=== PATIENT | female | born 1985 | race Caucasian/White ===

== ENCOUNTER 2018-03-14 19:18 | Emergency (ER) | payer MEDICAID ==
--- NOTE | 2018-03-14 22:08 | ER Document Report ---
ED Medical Screen (RME) - General Chief Complaint: Anxiety Stated Complaint: ANXIETY Time Seen by Provider: 03/14/18 21:19 Mode of Arrival: Ambulatory Information source: Patient Notes: Patient is a 33-year-old female who presents to the emergency department with multiple complaints today. Patient reports that she has a history of anxiety and panic attacks, states she takes Ativan 2 mg 4 times daily. States she has been out for 2 weeks. Patient also complains of right upper and left lower dental pain. Patient reports she has seen a dentist but has not been able to have any work done as her insurance has not come through yet. TRAVEL OUTSIDE OF THE [place] IN LAST 30 DAYS: No - Related Data Allergies/Adverse Reactions: Penicillins Allergy (Verified 03/14/18 19:19) Past Medical History - General Information source: Patient - Social History Chew tobacco use (# tins/day): No Frequency of alcohol use: None Drug Abuse: None Neurological Medical History: Reports: Hx Migraine Renal/ Medical History: Denies: Hx Peritoneal Dialysis Psychiatric Medical History: Reports: Hx Anxiety, Other - Panic disorder Surgical Hx: Negative - Immunizations Immunizations up to date: Yes Review of Systems - Review of Systems EENT: Dental problem Neurological/Psychological: Anxiety -: Yes All other systems reviewed and negative Physical Exam - Vital signs Vitals: Temp Pulse Resp BP Pulse Ox 98.5 F 97 16 124/76 100 03/14/18 19:32 03/14/18 19:32 03/14/18 19:32 03/14/18 19:32 03/14/18 19:32 - Notes Notes: PHYSICAL EXAMINATION: GENERAL: Well-appearing, well-nourished and in no acute distress. HEAD: Atraumatic, normocephalic. EYES: Pupils equal round extraocular movements intact, conjunctiva are normal. ENT: Nares patent, most of patient's teeth are missing, multiple areas of poor dentition noted, no drainable abscess identified. NECK: Normal range of motion LUNGS: No respiratory distress Musculoskeletal: Normal range of motion NEUROLOGICAL: Normal speech, normal gait. PSYCH: Normal mood, normal affect. SKIN: Warm, Dry, normal turgor, no rashes or lesions noted. Course - Re-evaluation Re-evalutation: Patient will be placed on clindamycin for her dental issues. Patient will be given a prescription for Ativan 1 mg x 6 tablets total. I did explain to patient that she needs to establish a primary care provider here in [place] and that we will not to be able to refill her Ativan again. Patient verbalizes understanding of same. - Vital Signs Vital signs: Temp Pulse Resp BP Pulse Ox 97.9 F 88 20 118/72 100 03/14/18 22:28 03/14/18 22:28 03/14/18 22:28 03/14/18 22:28 03/14/18 22:28 Doctor's Discharge - Discharge Clinical Impression: Anxiety Condition: Stable Disposition: HOME, SELF-CARE Instructions: Anxiety ([facility]) Additional Instructions: TOOTHACHE: Your pain is due to dental decay. The tooth must be repaired in order for you to feel better. You will, therefore, be referred to a dentist. We do not have dentists on the staff at [facility]. Severe swelling or drainage around a tooth usually means a dental abscess. This also requires evaluation and treatment by the dentist, but antibiotics may be prescribed while awaiting dental treatment. You should be rechecked immediately if you develop major swelling of the face, increasing pain, a lump in the jaw or gums, headache, difficulty swallowing, or fever. CLINDAMYCIN: You have been given a prescription for the antibiotic clindamycin. It is often prescribed for infections in the mouth, such as dental infections or abscesses, and for skin infections due to MRSA. It's important that you take all the medication, unless instructed otherwise by your physician. Failure to complete the entire course can result in relapse of your condition. Common side effects of antibiotics include nausea, intestinal cramping, or diarrhea. Women may develop vaginal yeast infections, and babies can get yeast (thrush) in the mouth following the use of antibiotics. Contact your physician if you develop significant side effects from this medication. Allergy to this antibiotic can result in hives, wheezing, faintness, or itching. If symptoms of allergy occur, stop the medication and call the doctor. FOLLOW-UP CARE: You have been referred for follow-up care to the dentists listed below. Call the dentists office for an appointment as you were instructed or within the next two days. If you experience worsening or a significant change in your symptoms, notify the physician immediately or return to the Emergency Department at any time for re-evaluation. [facility] [address], [place] I am refilling your anxiety medication for 3 days. We will be unable to refill this medication in the emergency department again. Please call one of the primary care providers that I have listed on your paperwork and set up an appointment to establish care. Take the antibiotics for your dental infection. Follow-up with a dentist as you have already scheduled. Prescriptions: Clindamycin HCl 300 mg PO TID #30 capsule Lorazepam [Ativan 1 mg Tablet] 1 mg PO BID PRN #6 tab PRN Reason: Anxiety
[2018-03-14 22:32] VITALS: BP 118/72
== END 2018-03-14 22:32 | disposition home or self-care (01) ==
LOC: ER 19:18
DX: F41.9 Anxiety disorder, unspecified (principal); K08.89 Other specified disorders of teeth and supporting structures; Z79.899 Other long term (current) drug therapy
CPT/HCPCS: 99283

== ENCOUNTER 2018-06-08 19:34 | Emergency (ER) | payer MEDICAID, OTHER ==
[2018-06-08] MEDS ORDERED: LIDOCAINE 2% VISCOUS SOLN 20 ML UDCUP PO ONE (23:12)
[2018-06-08] MEDS ORDERED: KETOROLAC TROMETHAMINE INJ/PF 30 MG/1 ML SDV IM ONE (23:17)
[2018-06-08] MEDS ORDERED: HYDROCODONE/ACETAMINOPHEN 5-325 MG (6 TAB/ER DISP) PO PRN (23:17)
--- NOTE | 2018-06-08 23:21 | ER Document Report ---
HPI - HPI Time Seen by Provider: 06/08/18 23:12 Pain Level: Denies Notes: Patient is a 33-year-old female who presents to the ED complaining of Rt upper dental pain #23-4 days. Pt states that she has bad teeth and is schedule with the oral surgeon next monday. She is already on cleocin. Pt states that the tooth is fractured and she has been using conservative measures with no relief. She has not noticed any obvious abscess or purulent discharge. Patient states that he is still able to eat and drink, but does have a decreased p.o. intake due to the pain. No other concerns or complaints. Denies any headache, fever, head injury, neck pain, hoarseness, drooling, URI, sore throat, chest pain, palpitations, syncope, cough, shortness of breath, wheeze, dyspnea, abdominal pain, nausea/vomiting/diarrhea, urinary retention, dysuria, hematuria, or rash. - ROS Systems Reviewed and Negative: Yes All other systems reviewed and negative - REPRODUCTIVE Reproductive: DENIES: : Past Medical History - Social History Smoking Status: Never Smoker Family History: Reviewed & Not Pertinent Neurological Medical History: Reports: Hx Migraine Renal/ Medical History: Denies: Hx Peritoneal Dialysis Psychiatric Medical History: Reports: Hx Anxiety - Immunizations Immunizations up to date: Yes Vertical Provider Document - CONSTITUTIONAL Agree With Documented VS: Yes Notes: PHYSICAL EXAMINATION: GENERAL: Well-appearing, well-nourished and in no acute distress. HEAD: Atraumatic, normocephalic. EYES: Pupils equal round and reactive to light, extraocular movements intact, sclera anicteric, conjunctiva are normal. ENT: EAC clear b/l. TM's intact b/l without erythema, fluid, or perforation. Nares patent and without discharge. oropharynx clear without exudates. No tonsilar hypertrophy or erythema. Moist mucous membranes. No sinus tenderness. Uvula midline. No palatine shift. No tongue protrusion. No respiratory compromise. Mouth: Poor dentition. + severe decay and mild gingivitis. + dental fracture to #2. No obvious abscess or discharge noted. No facial swelling. + tenderness to tooth #2. NECK: Normal range of motion, supple without lymphadenopathy. No rigidity/meningismus. LUNGS: Breath sounds clear to auscultation bilaterally and equal. No wheezes rales or rhonchi. HEART: Regular rate and rhythm without murmurs, rubs, gallops. NEUROLOGICAL: Cranial nerves grossly intact. Normal speech, normal gait. Normal sensory, motor exams PSYCH: Normal mood, normal affect. SKIN: Warm, Dry, normal turgor, no rashes or lesions noted. - INFECTION CONTROL TRAVEL OUTSIDE OF THE [place] IN LAST 30 DAYS: No Course - Re-evaluation Re-evalutation: 06/08/18 23:20 Patient is an afebrile, well-hydrated, 33-year-old female who presents to the ED with dental pain, suspect nerve root etiology versus infection. Vitals are acceptable. PE is otherwise unremarkable. No I&D, labs, or imaging warranted at this time based on H&P. Viscous lidocaine dispensed today as well as toradol given. Pt is already on cleocin. Low suspicion for any meningitis, sepsis, peritonsillar/pharyngeal abscess, respiratory compromise, Jose E's, temporal arteritis, or other emergent systemic condition at this time. Patient is aware this condition can change from initial presentation and she needs to monitor symptoms closely. Conservative measures otherwise for symptoms. Call to schedule an appointment with a dentist for further evaluation and management. Recheck with your PCM this week as well. Return to the ED with any worsening/concerning symptoms otherwise as reviewed in discharge. Patient is in agreement. - Vital Signs Vital signs: Temp Pulse Resp BP Pulse Ox 98.5 F 71 16 120/75 100 06/08/18 20:22 06/08/18 20:22 06/08/18 20:22 06/08/18 20:22 06/08/18 20:22 Discharge - Discharge Clinical Impression: Pain, dental Condition: Stable Disposition: HOME, SELF-CARE Instructions: Toothache ([facility]) Additional Instructions: [place] and floss twice daily Maintain fluid intake Take antibiotics as directed Mouthwash, salt water gargles, peroxide rinse as needed Tylenol/ibuprofen as needed Recheck with PCM this week Keep appointment with your oral surgeon next week Return to the ED with any worsening symptoms and/or development of fever, headache, facial swelling, swelling of lips/tongue/throat, trouble swallowing, drooling, hoarseness, neck pain/stiffness, chest pain, palpitations, syncope, shortness of breath, trouble breathing, abdominal pain, n/v/d, numbness/tingling, or other worsening symptoms that are concerning to you. Referrals: [facility] [Provider Group] - Follow up as needed
[2018-06-09 00:12] VITALS: BP 100/67
== END 2018-06-09 00:33 | disposition home or self-care (01) ==
LOC: ER 19:34
DX: K08.9 Disorder of teeth and supporting structures, unspecified (principal)
CPT/HCPCS: 99282; J3490

== ENCOUNTER 2019-03-31 08:33 | Emergency (ER) | payer MEDICAID ==
[2019-03-31] MEDS ORDERED: IBUPROFEN 800 MG TABLET PO ONE (08:54)
--- NOTE | 2019-03-31 08:55 | ER Document Report ---
HPI - HPI Patient complains to provider of: left foot pain Time Seen by Provider: 03/31/19 08:51 Onset: Just prior to arrival Pain Level: 3 Context: This 34-year-old female presents to the emergency department with complaints of left foot pain. Reports she slipped when she was in the bathtub. She reports she had used baby oil yesterday in the tub and forgot about it and slipped and hit her left foot against the wall of the bathtub. She did not hit her head. Reports pain immediately pain with walking pain just sitting there. Denies past medical history of injury to the foot. - REPRODUCTIVE Reproductive: DENIES: : - MUSCULOSKELETAL Musculoskeletal: REPORTS: Extremity pain Past Medical History - General Information source: Patient Last Menstrual Period: A few days ago - Social History Smoking Status: Current Every Day Smoker Cigarette use (# per day): Yes Frequency of alcohol use: None Drug Abuse: None Occupation: homemaker Lives with: Family Family History: Reviewed & Not Pertinent Patient has suicidal ideation: No Patient has homicidal ideation: No Neurological Medical History: Reports: Hx Migraine Renal/ Medical History: Denies: Hx Peritoneal Dialysis Psychiatric Medical History: Reports: Hx Anxiety Surgical Hx: Negative - Immunizations Immunizations up to date: Yes Vertical Provider Document - CONSTITUTIONAL Agree With Documented VS: Yes Exam Limitations: No Limitations General Appearance: WD/WN, Mild Distress - Grimaces - INFECTION CONTROL TRAVEL OUTSIDE OF THE [place] IN LAST 30 DAYS: No - HEENT HEENT: Atraumatic, Normocephalic - NECK Neck: Supple - RESPIRATORY Respiratory: No Respiratory Distress - CARDIOVASCULAR Cardiovascular: Regular Rate - MUSCULOSKELETAL/EXTREMETIES Musculoskeletal/Extremeties: MAEW, FROM, Tender - Left lateral rough planer tender to palpate no obvious deformity good pedal pulse cap refill less than 3 seconds. - NEURO Level of Consciousness: Awake, Alert, Appropriate Motor/Sensory: No Motor Deficit - DERM Integumentary: Warm, Dry Adult Front & Back Diagram: 1 - pt reports pain Course - Re-evaluation Re-evalutation: 03/31/19 09:00 34-year-old female with left foot pain after she had onset of the bathtub. Has not taken anything for pain Motrin offered and accepted. Patient taken to x- ray. 03/31/19 09:44 Foot X-Ray 03/31/19 08:54 IMPRESSION: NEGATIVE STUDY OF THE LEFT FOOT. NO RADIOGRAPHIC EVIDENCE OF ACUTE INJURY. X-ray negative. Patient will be placed in Prasanna wrap crutches and instructed to follow-up with orthopedics for continued pain. - Vital Signs Vital signs: Temp Pulse Resp BP Pulse Ox 97.6 F 91 14 125/79 97 03/31/19 08:37 03/31/19 08:37 03/31/19 08:37 03/31/19 08:37 03/31/19 08:37 - Diagnostic Test Radiology reviewed: Image reviewed, Reports reviewed Procedures - Immobilization Left Foot Pre-Proc Neuro Vasc Exam: Normal Immobilizer type: Prasanna wrap Performed by: KATEY Marie Post-Proc Neuro Vasc Exam: Unchanged from pre-exam Alignment checked and good: Yes Discharge - Discharge Clinical Impression: Injury of left foot Qualifiers: Encounter type: initial encounter Qualified Code(s): S99.922A - Unspecified injury of left foot, initial encounter Condition: Stable Disposition: HOME, SELF-CARE Instructions: Prasanna Wrap ([facility]), Use of Crutches ([facility]), Use of Tsik-Nkj-Tvyapev Ibuprofen ([facility]), Ice & Elevation ([facility]) Additional Instructions: *You have been evaluated for a foot injury Your foot x-ray was negative for a fracture *Rest/Ice/Elevate your foot *Maintain the prasanna wrap and use your crutches for the next few days for comfort *Follow up with your primary care provider within 1 week for referral to orthopedics as indicated *Take ibuprofen as indicated *Return to ED for worsening condition, changes, needs Referrals: UBALDO SILVA PA-C [Primary Care Provider] - Follow up in 3-5 days
--- NOTE | 2019-03-31 09:33 | RADIOLOGY REPORT (SQ) ---
EXAM DESCRIPTION: FOOT LEFT COMPLETE COMPLETED DATE/TIME: 03/31/2019 9:02 am REASON FOR STUDY: fall pain COMPARISON: None. NUMBER OF VIEWS: Three views. TECHNIQUE: AP, lateral and oblique radiographic images acquired of the left foot. LIMITATIONS: None. FINDINGS: MINERALIZATION: Normal. BONES: No acute fracture or dislocation. No worrisome bone lesions. JOINTS: No effusions. SOFT TISSUES: No soft tissue swelling. No foreign body. OTHER: No other significant finding. IMPRESSION: NEGATIVE STUDY OF THE LEFT FOOT. NO RADIOGRAPHIC EVIDENCE OF ACUTE INJURY. TECHNICAL DOCUMENTATION: JOB ID: [id number] [employer]- All Rights Reserved Reading location - IP/workstation name: [email or web address]
[2019-03-31 10:05] VITALS: BP 127/84
== END 2019-03-31 10:03 | disposition home or self-care (01) ==
LOC: ER 08:33
DX: S99.922A Unspecified injury of left foot, initial encounter (principal); M79.672 Pain in left foot; W18.2XXA Fall in (into) shower or empty bathtub, initial encounter; F17.210 Nicotine dependence, cigarettes, uncomplicated
CPT/HCPCS: 73630; J3490; 99283

== ENCOUNTER 2019-08-05 19:11 | Emergency (ER) | payer MEDICAID ==
[2019-08-05 19:16] VITALS: BP 146/80
[2019-08-05] MEDS ORDERED: CLINDAMYCIN HCL 150 MG CAPSULE PO ONE (19:27)
[2019-08-05] MEDS ORDERED: HYDROCODONE/ACETAMINOPHEN 5-325 MG TABLET PO ONE (19:27)
--- NOTE | 2019-08-05 19:29 | ER Document Report ---
HPI - HPI Time Seen by Provider: 08/05/19 19:21 Pain Level: 4 Notes: 34-year-old female patient presenting to the emergency department chief complaint of dental pain. Patient reports she has multiple broken teeth and has $8000 worth of dental work to be completed. She states she is having pain and needs antibiotics. She denies any fevers. - REPRODUCTIVE Reproductive: DENIES: : Past Medical History - General Information source: Patient - Social History Smoking Status: Former Smoker Family History: Reviewed & Not Pertinent Patient has suicidal ideation: No Patient has homicidal ideation: No Neurological Medical History: Reports: Hx Migraine Renal/ Medical History: Denies: Hx Peritoneal Dialysis Psychiatric Medical History: Reports: Hx Anxiety - Immunizations Immunizations up to date: Yes Vertical Provider Document - CONSTITUTIONAL Notes: PHYSICAL EXAMINATION: GENERAL: Well-appearing, well-nourished and in no acute distress. HEAD: Atraumatic, normocephalic. EYES: Pupils equal round extraocular movements intact, conjunctiva are normal. ENT: Nares patent, poor dentition noted throughout. Multiple broken teeth noted throughout. NECK: Normal range of motion LUNGS: No respiratory distress Musculoskeletal: Normal range of motion NEUROLOGICAL: Normal speech, normal gait. PSYCH: Normal mood, normal affect. SKIN: Warm, Dry, normal turgor, no rashes or lesions noted. - INFECTION CONTROL TRAVEL OUTSIDE OF THE [place] IN LAST 30 DAYS: No Course - Re-evaluation Re-evalutation: Patient will be started on antibiotics. I gave her 1 dose of pain medication here in the emergency department. I instructed her that we do not prescribe narcotics for pain. She will need to follow-up with her dentist for further management of her dental pain. - Vital Signs Vital signs: Temp Pulse Resp BP Pulse Ox 98.2 F 88 16 146/80 H 96 08/05/19 19:15 08/05/19 19:15 08/05/19 19:15 08/05/19 19:15 08/05/19 19:15 Discharge - Discharge Clinical Impression: Pain, dental Condition: Stable Disposition: HOME, SELF-CARE Additional Instructions: You have been seen for dental pain. It is very important that you follow-up with a dentist for definitive care. Please return if you develop fever greater than 101, swelling in your face, vomiting, difficulty breathing or swallowing, or any other symptoms that are concerning to you. For pain you should take ibuprofen 800 mg every 8 hours as needed. [facility] [phone] Prescriptions: Clindamycin HCl 300 mg PO TID #30 capsule Referrals: UBALDO SILVA PA-C [Primary Care Provider] - Follow up as needed
== END 2019-08-05 19:58 | disposition home or self-care (01) ==
LOC: ER 19:11
DX: K08.89 Other specified disorders of teeth and supporting structures (principal); Z87.891 Personal history of nicotine dependence
CPT/HCPCS: 99282; J3490

== ENCOUNTER 2019-09-11 13:32 | Emergency (ER) | payer MEDICAID ==
[2019-09-11] MEDS ORDERED: CLINDAMYCIN HCL 150 MG CAPSULE PO ONE (14:13)
[2019-09-11] MEDS ORDERED: HYDROCODONE/ACETAMINOPHEN 5-325 MG TABLET PO ONE (14:13)
[2019-09-11] MEDS ORDERED: LIDOCAINE 2% VISCOUS SOLN 15 ML UDCUP PO ONE (14:13)
--- NOTE | 2019-09-11 14:19 | ER Document Report ---
ED Oral Problem - General Chief Complaint: Toothache Stated Complaint: TOOTHACHE - RIGHT SIDE Time Seen by Provider: 09/11/19 14:13 Primary Care Provider: UBALDO SILVA PA-C [Primary Care Provider] - Follow up as needed Mode of Arrival: Ambulatory Information source: Patient Notes: 34-year-old female presented to ED for complaint of painful tooth on the lower right side. She has multiple decayed teeth. She states this is because she has a extreme fear of dentist and has not been going to the dentist due to this fear. She states she was told by her dentist that when you get a cavity in one tooth that it causes all of the other 2 tooth decay. She states she broke the tooth that is painful now yesterday. The cavity was already in the tooth before it was broken. She states she does have a appointment with a dentist in [place] next due to the coronavirus she cannot get a dental appointment before then. Patient has been treated with 1 [place] in the emergency room, clindamycin in the emergency room and a prescription for clindamycin and viscous lidocaine for her discomfort. Patient will be discharged home after this treatment. TRAVEL OUTSIDE OF THE [place] IN LAST 30 DAYS: No - HPI Patient complains to provider of: Toothache Onset: Yesterday Onset: Gradual Quality of pain: Throbbing Severity: Moderate Pain Level: 4 Sore throat: Moderate Swollen jaw/face: Moderate Associated symptoms: Toothache Worsened by: Cold Relieved by: Nothing Similar symptoms previously: Yes Recently seen / treated by doctor/dentist: No - Related Data Allergies/Adverse Reactions: Penicillins Allergy (Verified 09/11/19 14:00) Home Medications: paxil, synthroid Past Medical History - Social History Smoking Status: Never Smoker Chew tobacco use (# tins/day): No Frequency of alcohol use: None Drug Abuse: None Lives with: Family Family History: Reviewed & Not Pertinent Patient has suicidal ideation: No Patient has homicidal ideation: No - Past Medical History Cardiac Medical History: Reports: None Pulmonary Medical History: Reports: None EENT Medical History: Reports: None Neurological Medical History: Reports: Hx Migraine Endocrine Medical History: Reports: Hx Hypothyroidism Renal/ Medical History: Reports: None Malignancy Medical History: Reports: None GI Medical History: Reports: None Musculoskeletal Medical History: Reports None Skin Medical History: Reports None Psychiatric Medical History: Reports: Hx Anxiety Traumatic Medical History: Reports: None Infectious Medical History: Reports: None Surgical Hx: Negative Past Surgical History: Reports: None - Immunizations Immunizations up to date: Yes Review of Systems - Review of Systems Constitutional: No symptoms reported EENT: Dental problem Cardiovascular: No symptoms reported Respiratory: No symptoms reported Gastrointestinal: No symptoms reported Genitourinary: No symptoms reported Female Genitourinary: No symptoms reported Musculoskeletal: No symptoms reported Skin: No symptoms reported Hematologic/Lymphatic: No symptoms reported Neurological/Psychological: No symptoms reported Physical Exam - Vital signs Vitals: Temp Pulse Resp BP Pulse Ox 98.4 F 66 18 153/98 H 100 09/11/19 13:39 09/11/19 13:39 09/11/19 13:39 09/11/19 13:39 09/11/19 13:39 Interpretation: Normal - General General appearance: Appears well, Alert - HEENT Head: Normocephalic, Atraumatic Eyes: Normal Pupils: PERRL Ears: Normal External canal: Normal Tympanic membrane: Normal Sinus: Normal Nasal: Normal Mouth/Lips: Caries Mucous membranes: Normal Teeth diagram: 1 - All of her teeth are very decayed she has one tooth in the bottom right that is more painful as it just recently broke Pharynx: Normal Neck: Normal - Respiratory Respiratory status: No respiratory distress Chest status: Nontender Breath sounds: Normal Chest palpation: Normal - Cardiovascular Rhythm: Regular Heart sounds: Normal auscultation Murmur: No - Abdominal Inspection: Normal Distension: No distension Bowel sounds: Normal Tenderness: Nontender Organomegaly: No organomegaly - Back Back: Normal, Nontender - Extremities General upper extremity: Normal inspection, Nontender, Normal color, Normal ROM, Normal temperature General lower extremity: Normal inspection, Nontender, Normal color, Normal ROM, Normal temperature, Normal weight bearing. No: Tomasa's sign - Neurological Neuro grossly intact: Yes Cognition: Normal Orientation: AAOx4 [place] Coma Scale Eye Opening: Spontaneous Jose Armando Coma Scale Verbal: Oriented Jose Armando Coma Scale Motor: Obeys Commands [place] Coma Scale Total: 15 Speech: Normal Motor strength normal: LUE, RUE, LLE, RLE Sensory: Normal - Psychological Associated symptoms: Normal affect, Normal mood - Skin Skin Temperature: Warm Skin Moisture: Dry Skin Color: Normal Course - Vital Signs Vital signs: Temp Pulse Resp BP Pulse Ox 98.4 F 66 18 141/94 H 100 09/11/19 14:01 09/11/19 13:39 09/11/19 13:39 09/11/19 14:20 09/11/19 13:39 Discharge - Discharge Clinical Impression: Pain due to dental caries Condition: Stable Disposition: HOME, SELF-CARE Additional Instructions: TOOTHACHE: Your pain is due to dental decay. The tooth must be repaired in order for you to feel better. You will, therefore, be referred to a dentist. We do not have dentists on the staff at [facility]. Severe swelling or drainage around a tooth usually means a dental abscess. This also requires evaluation and treatment by the dentist, but antibiotics may be prescribed while awaiting dental treatment. You should be rechecked immediately if you develop major swelling of the face, increasing pain, a lump in the jaw or gums, headache, difficulty swallowing, or fever. ORAL NARCOTIC MEDICATION: You have been given a norco for pain control. This medication is a narcotic. It's best taken with food, as nausea can result if taken on an empty stomach. Don't operate machinery or drive within six hours of taking this medication. Do not combine this medicine with alcohol, or with any medication which can cause sedation (such as cold tablets or sleeping pills) unless you get permission from the physician. Narcotics tend to cause constipation. If possible, drink plenty of fluids and eat a diet high in fiber and fruits. Please be aware that prescription narcotics also have the potential for abuse. People become addicted to these medications because of the general sense of wellbeing that they induce. This feeling along with a significant reduction in tension, anxiety, and aggression provides a stimulating seductive quality to these drugs. Once your pain is under control, we encourage you to discard your unused narcotics. CLINDAMYCIN: You have been given a prescription for the antibiotic clindamycin. It is often prescribed for infections in the mouth, such as dental infections or abscesses, and for skin infections due to MRSA. It's important that you take all the medication, unless instructed otherwise by your physician. Failure to complete the entire course can result in relapse of your condition. Common side effects of antibiotics include nausea, intestinal cramping, or diarrhea. Women may develop vaginal yeast infections, and babies can get yeast (thrush) in the mouth following the use of antibiotics. Contact your physician if you develop significant side effects from this medication. Allergy to this antibiotic can result in hives, wheezing, faintness, or itching. If symptoms of allergy occur, stop the medication and call the doctor. You were given a syringe of viscous lidocaine. Place a small amount of this on your finger and apply it to the tooth that is painful. You can do this every 4 hours if you do it more often than every 4 hours it will erode the skin on your gums. This will make the pain worse. FOLLOW-UP CARE: You have been referred for follow-up care to the dentists listed below. Call the dentists office for an appointment as you were instructed or within the next two days. If you experience worsening or a significant change in your symptoms, notify the physician immediately or return to the Emergency Department at any time for re-evaluation. [facility] [address] [place] [address] [facility] [address] [facility] [address] [facility] ([facility]) [facility] [email or web address] [place] [address] [place] [address] Monday- 8:00am to 5:00 pm Will see patients from other [facility]. Charges based on income and family size and accepts Medicare, Medicaid, and Insurances Will pull molars [facility] [place] [address] Hours of Operation 8:00 am - 4:30 pm weekdays The following dental offices accept Medicaid: [facility] Dr. Gordillo Dr. Desai Dr. Kaur Dr. Fajardo Carloz Aleman Lutsavage, and [facility] Dr. Moore ([place]) Dr. Hutchins ([place]) [facility] Drs. Villalba ([place]) Dr. Haji ([place]) [facility] Dr. Espinoza ([place]) Drs. Rutledge and ([place]) Medicaid Care Line Prescriptions: Clindamycin HCl 300 mg PO TID #30 capsule Ibuprofen [Motrin 800 mg Tablet] 800 mg PO Q8H PRN #20 tab PRN Reason: Forms: Elevated Blood Pressure Referrals: UBALDO SILVA PA-C [Primary Care Provider] - Follow up as needed
[2019-09-11 14:20] VITALS: BP 141/94
== END 2019-09-11 14:29 | disposition home or self-care (01) ==
LOC: ER 13:32
DX: K08.89 Other specified disorders of teeth and supporting structures (principal); K02.9 Dental caries, unspecified
CPT/HCPCS: 99282; J3490 ×2